=== PATIENT | female | born 1980 | race Native Hawaiian/Other Pacific Islander ===

== ENCOUNTER 2016-11-19 14:12 | Emergency (ER) | payer OTHER ==
[~2016-11-19] VITALS: Ht 162.6 cm; Wt 88.0 kg
[2016-11-19 14:34] VITALS: TEMP 98.1
[2016-11-19 15:20] LABS: PLATELET COUNT 212 K/uL (152-353)
[2016-11-19 15:30] LABS: SODIUM 140 mmol/L (136-145)
[2016-11-19 17:37] VITALS: BP 124/82
== END 2016-11-19 17:36 | disposition home or self-care (01) ==
LOC: ED 14:12
DX: R07.89 Other chest pain (principal)
CPT/HCPCS: 36415; 80053; 82550; 84484; 85027; 86318; 93005; 99283

== ENCOUNTER 2018-08-07 18:39 | Emergency (ER) | payer OTHER ==
[~2018-08-07] VITALS: Ht 162.6 cm; Wt 85.7 kg
[2018-08-07 21:04] LABS: POTASSIUM 3.8 mmol/L (3.6-5.2)
[2018-08-07 21:16] LABS: PLATELET COUNT 181 K/uL (152-353)
[2018-08-07 22:21] VITALS: BP 150/95; TEMP 98.5
== END 2018-08-07 22:27 | disposition home or self-care (01) ==
LOC: ED 18:39
PROVIDERS: Internal Medicine
DX: K11.20 Sialoadenitis, unspecified (principal)
CPT/HCPCS: 36415; 80053; 85027; 87651; 96372; 99283; J0696; Q9963

== ENCOUNTER 2019-03-17 12:53 | Emergency (ER) | payer OTHER ==
[~2019-03-17] VITALS: Ht 162.6 cm; Wt 85.7 kg
[2019-03-17 13:39] VITALS: BP 125/87; TEMP 97.4
== END 2019-03-17 13:42 | disposition home or self-care (01) ==
LOC: ED 12:53
DX: J01.80 Other acute sinusitis (principal); J20.9 Acute bronchitis, unspecified
CPT/HCPCS: 96372; 99282; J0696

== ENCOUNTER 2019-07-27 13:11 | Emergency (ER) | payer OTHER ==
[~2019-07-27] VITALS: Ht 162.6 cm; Wt 77.1 kg
[2019-07-27 13:22] VITALS: TEMP 97.7
[2019-07-27 14:07] VITALS: BP 122/80
== END 2019-07-27 14:05 | disposition home or self-care (01) ==
LOC: ED 13:11
DX: J06.9 Acute upper respiratory infection, unspecified (principal)
CPT/HCPCS: 87502; 87651; 99283

== ENCOUNTER 2019-08-15 13:53 | Emergency (ER) | payer OTHER ==
[~2019-08-15] VITALS: Ht 162.6 cm; Wt 77.1 kg
[2019-08-15 14:51] VITALS: BP 134/83; TEMP 98.1
== END 2019-08-15 14:52 | disposition home or self-care (01) ==
LOC: ED 13:53
PROC: 0HQEXZZ Repair Left Lower Arm Skin, External Approach (ICD-10-PCS; principal; 2019-08-15)
DX: S51.812A Laceration without foreign body of left forearm, initial encounter (principal); W26.0XXA Contact with knife, initial encounter; Y92.89 Other specified places as the place of occurrence of the external cause
CPT/HCPCS: 99283